=== PATIENT | male | born 1935 | race Caucasian/White ===

== ENCOUNTER 2019-03-31 12:06 | Observation (INO) | payer MEDICARE, BC ==
--- NOTE | 2019-03-31 12:29 | ED ---
Syncope/Near Syncope - HPI Summary HPI Summary: This pt is an 83 y/o male presenting to [facility] via EMS for a witnessed syncopal episode today. Pt reports he was out for breakfast at a diner when he syncopized. He notes feeling diaphoretic and dizzy prior to syncope. Denies chest pain, SOB, palpitations prior to syncope. Pt denies choking. Per bystander , pt's syncopal episode was very brief. Per triage note, "pt vomited 3x on scene , but has not been nauseated since." Pt currently reports feeling better. Denies currently chest pain, SOB, palpitations. Denies any past hx of syncope. His medications include Coumadin for afib, Lasix, metoprolol for HTN. Denies tobacco and drug use, but admits to occasional alcohol use. - History Of Current Complaint Hx Obtained From: Patient Onset/Duration: Sudden Onset, Resolved Timing: Seconds Context: Witnessed, Loss Of Consciousness Activity At Onset: At Rest Aggravating Factor(s): Nothing Alleviating Factor(s): Nothing Associated Signs And Symptoms: Diaphoresis, Dizzy, Vomiting - Allergies/Home Medications Allergies/Adverse Reactions: Allergies Allergy/AdvReac Type Severity Reaction Status Date / Time No Known Allergies Allergy Verified 03/31/19 12:24 Home Medications: Home Medications Furosemide 1 tab PO DAILY 03/31/19 [History Confirmed 03/31/19] Metoprolol Tartrate TAB* [Lopressor TAB*] 1 tab PO BID 03/31/19 [History Confirmed 03/31/19] Warfarin Sodium 5 mg PO DAILY 03/31/19 [History Confirmed 03/31/19] PMH/Surg Hx/FS Hx/Imm Hx Endocrine/Hematology History: Denies: Hx Diabetes Cardiovascular History: Reports: Hx Atrial Fibrillation, Hx Hypercholesterolemia , Hx Hypertension - Surgical History Surgical History: Yes Surgery Procedure, Year, and Place: knee replacement. ankle surgery. wrist surgery. elbow surgery - Family History Known Family History: Positive: Cardiac Disease - Brother with bypass surgery Family History: Mother with breast CA - Social History Alcohol Use: Occasionally Substance Use Type: Reports: None Smoking Status (MU): Never Smoked Tobacco Review of Systems Positive: Skin Diaphoresis. Negative: Fever, Chills Negative: Chest Pain Negative: Shortness Of Breath Positive: Vomiting Neurological: Other - POSITIVE: dizziness Positive: Syncope All Other Systems Reviewed And Are Negative: Yes Physical Exam - Summary Physical Exam Summary: VITAL SIGNS: Reviewed. GENERAL: Patient is a well-developed and nourished male who is lying comfortable in the stretcher. Patient is not in any acute respiratory distress. HEAD AND FACE: No signs of trauma. No ecchymosis, hematomas or skull depressions. No sinus tenderness. EYES: PERRLA, EOMI x 2, No injected conjunctiva, no nystagmus. EARS: Hearing grossly intact. Ear canals and tympanic membranes are within normal limits. MOUTH: Oropharynx within normal limits. NECK: Supple, trachea is midline, no adenopathy, no JVD, no carotid bruit, no c- spine tenderness, neck with full ROM. CHEST: Symmetric, no tenderness at palpation. LUNGS: Clear to auscultation bilaterally. No wheezing or crackles. CVS: Regular rate and rhythm, S1 and S2 present, no murmurs or gallops appreciated. ABDOMEN: Soft, non-tender. No signs of distention. No rebound, no guarding, and no masses palpated. Bowel sounds are normal. EXTREMITIES: FROM in all major joints, no edema, no cyanosis or clubbing. NEURO: Alert and oriented x 3. No acute neurological deficits. Speech is normal and follows commands. SKIN: Dry and warm. Triage Information Reviewed: Yes Vital Signs Reviewed: Yes Procedures - Sedation Patient Received Moderate/Deep Sedation with Procedure: No Diagnostics - Laboratory Result Diagrams: 03/31/19 14:56 03/31/19 14:56 Lab Statement: Any lab studies that have been ordered have been reviewed, and results considered in the medical decision making process. - Radiology Chest XR Radiology Interpretation Completed By: Radiologist Summary of Radiographic Findings: IMPRESSION: Cardiomegaly. No definite pneumonia is identified. Dr. Spence has reviewed this report. - CT Brain CT CT Interpretation Completed By: Radiologist Summary of CT Findings: IMPRESSION: 1. No acute intracranial abnormality by CT. 2. Mild chronic small vessel ischemic disease is likely. Dr. Spence has reviewed this report. - EKG 14:26 Cardiac Rate: NL - at 63 bpm EKG Rhythm: Sinus Rhythm Summary of EKG Findings: EKG at 1426 shows normal sinus rhythm at a rate of 63 vpm. Q waves in leads II, III, and aVF. LVH. No ST elevations. Course/Dx Assessment/Plan: This pt is an 83 y/o male presenting to [facility] via EMS for a witnessed syncopal episode today. Pt reports he was out for breakfast at a diner when he syncopize. He notes feeling diaphoretic and dizzy prior to syncope. Denies chest pain, SOB, palpitations prior to syncope. Pt denies choking. Per bystander, pt's syncopal episode was very brief. Per triage note, "pt vomited 3x on scene, but has not been nauseated since." Pt currently reports feeling better. Denies currently chest pain, SOB, palpitations. Denies any past hx of syncope. His medications include Coumadin for afib, Lasix, metoprolol for HTN. Denies tobacco and drug use, but admits to occasional alcohol use. Blood work without any significant abnormality except for glucose of 246, BNP is 122. Chest x-ray impression: Cardiomegaly. No definite pneumonia identified. Head CT impression: No acute intracranial abnormality. I discussed my physical exam and test results with Dr. Dawn from the hospitalist services and she agrees to admit the patient to her services. The patient is hemodynamically stable, alert and oriented x 3. - Diagnoses Provider Diagnoses: Syncope - Physician Notifications Discussed Care of Patient With: Judi Dawn - hospitalist Time Discussed With Above Provider: 16:32 Instructed by Provider To: Admit As Inpatient Discharge ED - Sign-Out/Discharge Documenting (check all that apply): Patient Departure - Admit to [facility] All imaging exams completed and their final reports reviewed: Yes - Discharge Plan Condition: Stable Disposition: ADMITTED TO [facility] - Billing Disposition and Condition Condition: STABLE Disposition: Admitted to [facility] - Attestation Statements Document Initiated by Oracio: Yes Documenting Scribe: Yennifer Armendariz Provider For Whom Oracio is Documenting (Include Credential): Harjeet Spence MD Scribe Attestation: Yennifer Romero, scribed for Harjeet Spence MD on 03/31/19 at 2125. Scribe Documentation Reviewed: Yes Provider Attestation: The documentation as recorded by the Yennifer mei accurately reflects the service I personally performed and the decisions made by me, Harjeet Spence MD Status of Scribe Document: Viewed
[2019-03-31] MEDS ORDERED: NS 0.9% 1000 ML** 1,000 ML IV ONE (14:13)
[2019-03-31 15:05] LABS: ABS Lymphocytes 0.8 10^3/ul (1.0-4.8); ABS Monocytes 0.4 10^3/ul (0-0.8); ABS Neutrophils 8.2 10^3/ul (1.5-7.7); Eosinophil % 0.3 %; Hematocrit 42 % (42-52); Hemoglobin 14.3 g/dL (14.0-18.0); Lymphocyte % 8.3 %; Mean Corpuscular HGB Conc 34 g/dL (31-36); Mean Corpuscular Hemoglobin 31 pg (27-31); Mean Corpuscular Volume 92 fL (80-94); Mean Platelet Volume 7.2 fL (7.4-10.4); Platelet Count 246 10^3/uL (150-450); Red Blood Count 4.59 10^6 /uL (4.18-5.48); Red Cell Distribution Width 15 % (10-15); White Blood Count 9.4 10^3/uL (3.5-10.8)
[2019-03-31 15:27] LABS: Albumin/Globulin Ratio 1.3 (1-3); BUN/Creatinine Ratio 15.5 (8-20); Calcium 8.8 mg/dL (8.6-10.3); EGFR African American 89.7 (>60); EGFR Non-African American 74.1 (>60); Globulin 3.1 g/dL (2-4); Potassium 4.8 mmol/L (3.5-5.0); Total Bilirubin 0.5 mg/dL (0.2-1.0); Total Protein 7.1 g/dL (6.4-8.9)
[2019-03-31 15:53] LABS: TSH (Thyroid Stimulating Horm) 0.7 mcIU/mL (0.34-5.60)
--- NOTE | 2019-03-31 17:40 | HP ---
History of Present Illness - History of Present Illness Reason for Visit: Syncope History of Present Illness: This is a 83 y/o M with history of HFpEF, CAD, paroxysmal Atrial Fibrillation and TIA presented with one episode of syncope which happened this morning. According to the patient, he was having breakfast in the diner and then he felt mild nausea and some discomfort and then passed out. It was witnessed by the dairy manufacturing technologist in the diner who is not present during the history and most of the history is from patient himself and he is a poor historian. According to the ED note, episode was brief and witness didnot notice confusion after the episode. Patient recalls that he was sitting in a joseph and then he fell forward on the table but denies hitting head and any trauma. He denies chest pain, dizziness, palpitation and weakness, incontinence. He denies fever, cough, facial droop, slurred speech, numbness, tingling and vertigo. He states that after the episode he felt nauseous and vomited 2 times. He recalls that people around them didnot allow him to stand and he had to sit there until they took him to the ambulance. IN ED His Blood pressure was elevated-181/84 mm Hg; other vitals stable. Blood work without any significant abnormality except for glucose of 246 and BNP is 122. Chest x-ray showed no acute cardiopulmonary disease. Head CT impression: No acute intracranial abnormality.The patient is hemodynamically stable,alert and oriented x 3. He was given IV fluids. - Past Medical History Past Medical History: 1. HFpEF 2. CAD - on medical management 3. Atrial Fibrillation-paroxysmal 4. TIA 5. Psoriasis Home Medications 1. Aspirin 81 mg PO daily 2. Coumadin 5 mg every day except Thursday and Thursday; MoWed takes 7.5 mg PO 3. Metoprolol tartate 50 mg BID 4. Lasix 20 mg PO daily - Past Surgical History Past Surgical History: 1. Left Knee Replacement 2. Wrist Surgery - Past Family History Past Family History: He has 4 kids- one when 1 day old and 2nd one at 51 years age because of heart and liver issues. Other 2 kids are healthy. His mother had Breast Cancer. - Past Social History Past Social History: He lives alone and is retired. He occassionally drinks alcohol and quit smoking 40 years ago; used to smoke 1 PPD before. His HCP is his daughter and son- Poonam Hartley([phone]), Enedina Hope([phone]). He is DNR. Review of Systems - Review of Systems Constitutional: Negative: Fever, Chills, Sweats, Weakness, Malaise, Other Eyes: Negative: Pain, Vision Change, Conjunctivae Inflammation, Eyelid Inflammation, Redness, Other ENT: Negative: Ear Pain, Ear Discharge, Nose Pain, Nose Discharge, Nose Congestion, Mouth Pain, Mouth Swelling, Throat Pain, Throat Swelling, Other Respiratory: Negative: Cough, Dry, Shortness of Breath, Hemoptysis, SOB with Excertion, Pleuritic Pain, Sputum, Wheezing Cardiovascular: Negative: Chest Pain, Palpitations, Orthopnea, Paroxysmal Noc. Dyspnea, Edema, Light Headedness, Other Gastrointestinal: Positive: Nausea, Vomiting. Negative: Abdominal Pain, Diarrhea, Constipation, Melena, Hematochezia, Other Genitourinary: Positive: Frequency. Negative: Dysuria, Incontinence, Hematuria , Retention, Other Musculoskeletal: Negative: Neck Pain, Shoulder Pain, Arm Pain, Back Pain, Hand Pain, Leg Pain, Foot Pain, Other Skin: Positive: Rash. Negative: Lesions, Toney, Bruising, Other Neurological: Negative: Weakness, Numbness, Incoordination, Change in Speech, Confusion, Seizures, Other - Medications/Allergies Allergies/Adverse Reactions: Allergies Allergy/AdvReac Type Severity Reaction Status Date / Time No Known Allergies Allergy Verified 03/31/19 12:24 Medications: Current Medications Enoxaparin Sodium (Lovenox(*)) 40 mg SUBCUT Q24H [facility] Furosemide (Lasix Tab*) 20 mg PO DAILY [facility] Metoprolol Tartrate (Lopressor Tab*) 50 mg PO BID [facility] Warfarin Sodium (Coumadin Tab(*)) 5 mg PO DAILY [facility]; Protocol Exam Vital Signs: Vital Signs (72 hours) 03/31/19 03/31/19 03/31/19 12:16 12:17 13:00 Temperature 97 F Pulse Rate 62 61 61 Respiratory 20 16 18 Rate Blood Pressure 181/84 (mmHg) O2 Sat by Pulse 97 98 96 Oximetry Exam: Patient is lying on a bed with no acute distress. HEENT: Normocephalic and atraumatic. Sclera anicteric. PERRLA Neck: No JVD Lungs: Clear with no added sounds. heart: S1/S2 heard with no murmur, rubs or gallops ABdomen: Soft, nondistended and nontender. Normal BS heard. Firm swelling on epigastric region. Extremities: 1+ pitting edema on bilateral LE. Rash on LLE ans LUE. Neuro: Alert, oriented and consious. CN intact. Motor and sensory intact. Assessment/Plan - Assessment/Plan Assessment: 83 M with history of HFpEF(on lasix), CAD(on aspirin), paroxysmal AF(metoprolol , warfarin), TIA presented with syncope while having breakfast. Found to have hyperglycemia and EKG showing 1st degree AV block with T inversion in III and V1 , Q waves with normal troponin. Plan: 1. Syncope: Patient is a poor historian. He does report some mild prodorme. D/D includes vasovagal syncope, arrhythmia like block, orthostatic hypotension. We will put him on Tele monitor to watch for any arrhythmia. We will also do Echo to rule out valve problem. We will measure orthostatic vitals. We will also order Carotid doppler to rule out any stenosis. 2.HFpEF-Last echo was on 06/2018 which showed Grade I diastolic dysfunction with EF of 50-55%. Continue his lasix. 3. CAD- Stress test done in 07/05/2018 showed small inferior-lateral infarct with elise infarct ischemia viraj at lateral wall and was stratified as low-to- intermediate risk. Continue Aspirin. 4. Atrial Fibrillation: Now normal rate and rhythm. [id number] score is 2. He is on warfarin 5 mg every day except Thursday and Thursday-7.5 mg daily. 5.Hyperglycemia- We will check A1C. 6. DVT Prophylaxis: On warfarin. 7. DIet: Heart Healthy diet 8. DNR Attestation Documenting Resident: Lucila Armstrong Supervising Physician: Jo Ann Aceves Attending/Supervising Physician Comment: Agree with resident H&P and findings 83M PMH HFpEF, CAD, A fib, TIA, psoriasis who is here after a witnessed syncope. Agree with cardiogenic workup, no e/o focal neruologic defecit or hx c/ w TIA or seizure. Attestation: This service has been performed in part by a resident under the direction of a teaching physician.I, Jo Ann Aceves, performed the service, or was physically present during the critical, or burnette portions of the service, furnished by the resident. I participated in the management of the patient.
[2019-03-31] MEDS ORDERED: Enoxaparin(*) 40 MG/0.4 ML SYR SUBCUT SCH (18:00)
[2019-03-31 18:36] LABS: INR 2.75 (0.82-1.09)
[2019-03-31] MEDS ORDERED: Warfarin TAB(*) 5 MG PO SCH (19:30)
[2019-03-31] MEDS: Metoprolol Tartrate TAB* 50 mg PO SCH (20:29)
--- NOTE | 2019-04-01 07:06 | PN ---
Subjective Date of Service: 04/01/19 Interval History: HD 2 on 04/01 83 M with history of HFpEF(on lasix), CAD(on aspirin), paroxysmal AF(metoprolol , warfarin), TIA presented with syncope while having breakfast. Found to have hyperglycemia and EKG showing 1st degree AV block with T inversion in III and V1 , Q waves with normal troponin. D/D vasovagal, arrhythmia No acute overnight events vitals stable Patient denies any complain at present. He agrees to be transferred to [facility]. He had one BM today and sent for stool occult blood test. According to his daughter, her aunt called and said that he was also coughing up some blood but is very unclear from the history. His Hb is stable now. Objective Active Medications: Furosemide (Lasix Tab*) 20 mg PO DAILY [facility] Metoprolol Tartrate (Lopressor Tab*) 50 mg PO BID [facility] Last Admin: 03/31/19 20:29 Dose: 50 mg Warfarin Sodium (Coumadin Tab(*)) 5 mg PO SuTuThFrSa@1700 [facility]; Protocol Last Admin: 03/31/19 20:30 Dose: 5 mg Warfarin Sodium (Coumadin Tab(*)) 7.5 mg PO MoWe@1700 [facility] Vital Signs - 8 hr 03/31/19 04/01/19 04/01/19 23:15 00:15 02:49 Temperature 98 F 97.7 F Pulse Rate 60 68 59 Respiratory 20 20 Rate Blood Pressure 106/50 143/60 122/50 (mmHg) O2 Sat by Pulse 97 97 Oximetry Oxygen Devices in Use Now: None Exam: Patient is lying on a bed with no acute distress. HEENT: Normocephalic and atraumatic. Sclera anicteric. PERRLA Neck: No JVD Lungs: Clear with no added sounds. heart: S1/S2 heard with no murmur, rubs or gallops ABdomen: Soft, nondistended and nontender. Normal BS heard. Firm swelling on epigastric region. Extremities: 1+ pitting edema on bilateral LE. Rash on LLE ans LUE. Neuro: Alert, oriented and consious. CN intact. Motor and sensory intact. Result Diagrams: 04/01/19 12:40 03/31/19 14:56 Assess/Plan/Problems-Billing Assessment: 83 M with history of HFpEF(on lasix), CAD(on aspirin), paroxysmal AF(metoprolol , warfarin), TIA presented with syncope while having breakfast. Found to have hyperglycemia and EKG showing 1st degree AV block with T inversion in III and V1 , Q waves with normal troponin. D/D vasovagal, arrhythmia. US carotid shows occluded left carotid stenosis and critical stenosis of RCA. ECho shows normal EF with mild aortic stenosis and hypokinesis of basalinferior wall. - Patient Problems (1) Syncope Current Visit: Yes Status: Acute Code(s): R55 - SYNCOPE AND COLLAPSE SNOMED Code(s): 623304320 Comment: -witnessed syncope. -doesnot exactly recall what exactly happened; poor historian -could be vasovagal; happened after large meal -EKg showing 1st degree heart block -Echo: Normal EF with basalinferior hypokinesis and mild aortic stenosis -US carotid showing complete occlusion of LCA and critical(70-99) stenosis of RCA> -Neuro following; appreciate recs -transferring to [facility] for revascularization (2) (HFpEF) heart failure with preserved ejection fraction Current Visit: Yes Status: Acute Code(s): I50.30 - UNSPECIFIED DIASTOLIC ( CONGESTIVE) HEART FAILURE SNOMED Code(s): 158921063 Comment: -has hsitory of HF with pEF -following Dr. Felix -Echo showing grade I diastolic dysfunction -on lasix (3) CAD (coronary artery disease) Current Visit: Yes Status: Acute Code(s): I25.10 - ATHSCL HEART DISEASE OF [place] CORONARY ARTERY W/O ANG PCTRS SNOMED Code(s): 96319375 Comment: -has hypokinesis and abnormal stress test in 06/2017 -on medical management -on aspirin -allergic to statin- but patient says it was long time ago and he doesnot remember what reaction it was. -we will try pravastatin- if develops rxn we can switch to ezetimibe (4) Diabetes Current Visit: Yes Status: Acute Code(s): E11.9 - TYPE 2 DIABETES MELLITUS WITHOUT COMPLICATIONS SNOMED Code(s): 83965058 Comment: -new diagnosis on this visit. -AqN4o-3.8 -can be started on metformin after his surgery (5) Atrial fibrillation Current Visit: Yes Status: Acute Code(s): I48.91 - UNSPECIFIED ATRIAL FIBRILLATION SNOMED Code(s): 81181117 Comment: -rate controlled with metoprolol -chadsvasc score of 6 -continue warfarin -INR on goal (6) DVT prophylaxis Current Visit: Yes Status: Acute Code(s): Z29.9 - ENCOUNTER FOR PROPHYLACTIC MEASURES, UNSPECIFIED SNOMED Code(s): 596286265 Comment: on therapeutic warfarin (7) DNR (do not resuscitate) Current Visit: Yes Status: Acute Status and Disposition: Inpatient transferring to [facility] Attending: Jo Ann Aceves Attestation Documenting Resident: Lucila Armstrong Supervising Physician: Jo Ann Aceves Attestation: This service has been performed in part by a resident under the direction of a teaching physician.I, Jo Ann Aceves, performed the service, or was physically present during the critical, or burnette portions of the service, furnished by the resident. I participated in the management of the patient.
[2019-04-01] MEDS ORDERED: Perflutren Lipid Microsphere* 3 ML VIAL ONE (08:18)
[2019-04-01] MEDS: Metoprolol Tartrate TAB* 50 mg PO SCH (09:00)
[2019-04-01] MEDS ORDERED: Furosemide TAB* 20 MG PO SCH (09:00)
--- NOTE | 2019-04-01 10:47 | ECHO ---
*[facility]* [place] [address] Fax #: [phone] Transthoracic Echocardiogram Patient: Enedina Hope : 1935 Study Date: 04/01/2019 Age: 83 Gender: M HR: 57 bpm Height: 73 in /185.4 cm BSA: 2.37 m^2 Weight: 249.5 lb /113.4 kg BMI: 33 kg/m^2 *Supervisor Telephone Answering Service: Juanita Eden RDCS RN *Referring Physician: * Lucila Armstrong *Reading Physician: * Yumiko Mcclain MD Indications: Syncope. History: Atrial fibrillation. Coronary artery disease. Congestive heart failure. Transient ischemic attack. Risk factors: Former tobacco use. Obese. Conclusions Summary: - Left ventricle: The cavity size is normal. Wall thickness is mildly to moderately increased. Systolic function is at the lower limits of normal. The estimated ejection fraction is 50-55%. - Mitral valve: There is mild regurgitation. - Aortic valve: The findings are consistent with mild stenosis. The peak systolic velocity is 2 m/sec. The mean systolic gradient is 10.0 mm Hg. The peak systolic gradient is 15.0 mm Hg. The LVOT to aortic valve VTI ratio is 0.37. The valve area by the velocity-time integral method is 1.54 cm^2. The valve area by the peak velocity method is 1.60 cm^2. - Tricuspid valve: There is mild regurgitation. - Pulmonic valve: There is mild regurgitation. - C/t 07/09/2018, aortic stenosis is new (was aortic sclerosis then although hemodynmaics are unchanged). Mixed valvular disease was trace then and now up to mild. Now aortic root measures normal instead of mildly dilated then. Study data: Transthoracic echocardiogram. Procedure: Transthoracic echocardiography was performed. Image quality was fair. The study was technically limited due to body habitus and smoking history. Intravenous Definity 3 ml was administered to enhance imaging. Complete 2D, spectral Doppler, and color flow Doppler. Location: Bedside. Patient status: Observation. Patient room number: 441-02. Rhythm: Bradycardia with PVCs. Findings Left ventricle: The cavity size is normal. Wall thickness is mildly to moderately increased. Systolic function is at the lower limits of normal. The estimated ejection fraction is 50-55%. Regional wall motion abnormalities: Hypokinesis of the basalinferior myocardium. Doppler parameters are consistent with abnormal left ventricular relaxation (grade 1 diastolic dysfunction). Right ventricle: The cavity size is mildly dilated. Systolic function is normal. Left atrium: The atrium is at the upper limits of normal in size. Right atrium: The atrium is slightly dilated. Mitral valve: The leaflets are mildly thickened. There is no evidence of stenosis. There is mild regurgitation. Aortic valve: The valve is trileaflet. The leaflets are mild-moderately thickened with decreased excursion. The findings are consistent with mild stenosis. There is no significant regurgitation. Tricuspid valve: The leaflets are normal thickness. There is no evidence of stenosis. There is mild regurgitation. Pulmonic valve: The leaflets are normal thickness. There is no evidence of stenosis. There is mild regurgitation. Aorta: Aortic root: The aortic root is not dilated. Ascending aorta: The ascending aorta is not dilated. Aortic arch: The aortic arch is not dilated. Pericardium: There is no pericardial effusion. Pulmonary arteries: The main pulmonary artery is normal-sized. Systolic pressure can not be accurately estimated. Systemic veins: Inferior vena cava: The vessel is normal in size. There is (>= 50%) respiratory change in the IVC dimension. Measurements Left ventricle Value Ref Aortic valve Value Ref LEV, LAX 4.6 cm 4.2 - Isabel diam, ED 2.3 cm ---- 5.8 Peak v, S 2 m/sec ---- ESD, LAX 3.5 cm 2.5 - VTI, S 47.9 cm ---- 4.0 Mean grad, S 10.0 mm Hg ---- FS, LAX 25 % 25 - 43 Peak grad, S 15.0 mm Hg ---- PW, ED (H) 1.1 cm 0.6 - LVOT/AV, VTI ratio 0.37 ---- 1.0 EBER, VTI 1.54 cm^2 ---- IVS/PW, ED 1.26 -------- EBER, Vmax 1.60 cm^2 ---- E', lat isabel, TDI (L) 6.5 cm/sec >=10.0 E/e', lat isabel, TDI 14 -------- Mitral valve Value Ref E', med isabel, TDI (L) 4.8 cm/sec >=7.0 Peak E 0.92 m/sec -- -- E/e', med isabel, TDI 19 -------- Peak A 0.9 m/sec ---- E', avg, TDI 5.7 cm/sec -------- Decel time 254 ms ---- E/e', avg, TDI (H) 16 <=14 Peak grad, D 3.4 mm Hg -- -- Peak E/A ratio 1 ---- LVOT Value Ref Diam, S 2.30 cm -------- Pulmonic valve Value Ref Area 4.2 cm^2 -------- Peak v, S 0.77 m/sec ---- Peak jelena, S 0.77 m/sec -------- Peak grad, S 2.0 mm Hg ---- VTI, S 17.8 cm -------- Mean grad, S 2 mm Hg -------- Aortic root Value Ref SV 85 ml -------- Root diam 3.2 cm <4.4 SV/bsa 36 ml/m^2 -------- Ascending aorta Value Ref Ventricular septum Value Ref AAo AP diam, S 3.4 cm ---- IVS, ED (H) 1.4 cm 0.6 - 1.0 Aortic arch Value Ref Arch diam 2.7 cm ---- Right ventricle Value Ref LEV minor ax, A4C (H) 3.7 cm 1.9 - Decending aorta Value Ref mid 3.5 Tali peak jelena 0.68 m/sec ---- Left atrium Value Ref Inferior vena cava Value Ref ML dim, A4C 3.9 cm -------- Diam 2.0 cm ---- SI dim, A4C 5.0 cm -------- Vol/bsa, ES, 1-p 25 ml/m^2 12 - 37 A4C Vol/bsa, ES, A/L 34 ml/m^2 16 - 34 Right atrium Value Ref ML dim, ES, A4C 3.7 cm 2.6 - 4.4 SI dim, ES, A4C (H) 5.4 cm 3.4 - 5.3 Estimated RAP 3 mm Hg -------- Legend: (L) and (H) liss values outside specified reference range. Prepared and electronically signed by Yumiko Mcclain MD 04/01/2019 10:46
[2019-04-01 11:53] LABS: Urine Appearance Clear; Urine Bilirubin Negative (Negative); Urine Blood Negative (Negative); Urine Color Yellow; Urine Glucose 1+(50 mg/dL) (Negative); Urine Ketones Negative (Negative); Urine Nitrite Negative (Negative); Urine Protein Negative (Negative); Urine Specific Gravity 1.017 (1.010-1.030); Urine Urobilinogen Negative (Negative)
--- NOTE | 2019-04-01 12:25 | CONSULT ---
Consult Consult: Date of service: 04/01/2019 Reason for consult: Neurology was consulted by Dr. Armstrong/Dr. Aceves for abnormal carotid ultrasound results. The history was obtained by the patient. Chief complaint: Passed out History of Present Illness: Mr. Hope is an 83-year-old man with a past medical history of atrial fibrillation on coumadin, TIA in 2005 manifesting as visual disturbance, hypertension, who had an episode of loss of consciousness on 03/31/2019. The patient was at the diner having breakfast at 10 AM. He recalls sitting in a joseph. He finished his meal and was waiting for the detail manager to refill his coffee. He suddenly passed out and does not recall what happened for about a minute. He denied any focal weakness or paresthesia. He denied any visual disturbance. He denied any headaches, double vision, slurred speech or swallowing difficulty. There were no reported seizure-like activity. Following the episode, he felt nauseated and vomited twice. He denied any prodromal symptoms of lightheadedness or vertigo. He woke-up and people were around him trying to care for him. He recalls being placed on a stretcher and transported to [facility]. The patient reports chronic symptoms of orthostatic hypotension. For instance, he has to sit at the edge of the bed for a minute before standing to prevent lightheadedness. He gets dizzy when bending forward or leaning to picking machine operator an object off the floor. With further questioning about why he is on aspirin therapy, the patient stated that "it was for artery disease" but was not sure if it was for CAD or carotids. He cannot tolerate statin therapy due to myalgia. Orthostatic vitals were measured and are normal. The patient's SBP increased from 117 to 143 from lying to standing. NIHSS: 0 Labs, Imaging and Other Diagnostics: INR: 2.75 Glucose: 246 Urinalysis: no pyuria. IMAGING: - Carotid ultrasound 04/01/2019: 70-99% stenosis in the right ICA with interval worsening and occluded left ICA new compared to the 2005 exam. - TTE 04/01/2019: EF 50-55%. Past Medical History: As per HPI in addition to psoriasis, CAD, Family History: Mother had cancer. No history of stroke or seizures. Social History: Former smoker, quit [id number] after he smoked 1ppd for > 30 years. He drinks occasionally. He is retired and resides alone. Medications: Furosemide (Lasix Tab*) 20 mg PO DAILY [facility] Last Admin: 04/01/19 09:00 Dose: 20 mg Metoprolol Tartrate (Lopressor Tab*) 50 mg PO BID [facility] Last Admin: 04/01/19 09:00 Dose: 50 mg Warfarin Sodium (Coumadin Tab(*)) 5 mg PO [id number]@1700 AGNES; Protocol Last Admin: 03/31/19 20:30 Dose: 5 mg Warfarin Sodium (Coumadin Tab(*)) 7.5 mg PO [id number]@1700 AGNES Allergies No Known Allergies Allergy (Verified 03/31/19 12:24) Review of Systems: A 14-point ROS was obtained and otherwise negative except for what was mentioned in the HPI. Physical Exam: Vitals: Vital Signs - 12 hr Temp Pulse Resp BP Pulse Ox 04/01/19 11:15 97.9 F 57 20 118/52 96 04/01/19 08:00 18 04/01/19 07:15 97.8 F 60 18 135/74 100 04/01/19 02:49 97.7 F 59 20 122/50 97 General: well nourished, well developed. Alert, cooperative, no apparent distress, appears stated age. Head: normocephalic, without obvious abnormality Eyes: conjunctivae/corneas clear Neck: supple, symmetrical. No clear carotid bruit. No lymphadenopathy. Lungs: clear to auscultation bilaterally, non-labored CV: regular rhythm, S1, S2 normal, radial pulses palpable Extremities: normal range of motion with no cyanosis. Skin: hyperpigmented lesion on the left ear. Psych: affect-broad and normal mood. Easy to establish rapport. Neurological examination: Mental status: awake; alert and oriented to person, place, time, & general circumstances; speech & language including expression, naming, repetition, & comprehension was assessed and found to be normal. Cranial nerves: I: not tested II, III, IV, : normal confrontation B/L, Pupils midrange and reactive to light , normal consensual response; extraocular muscles are intact; no ptosis; no conjugate or asymmetrical nystagmus V 1/2/3: sensation is intact on forehead, cheeks, and jaw region VII: no facial droop; facial symmetry while smiling & wrinkling of forehead; tight lid closure VIII: able to hear throughout the history process IX & X: symmetric palatal elevation XI: normal strength against resistance XII: tongue is symmetrical & midline with no atrophy or fasciculations Motor (R/L): no abnormal movements, no pronator drift. Normal bulk and tone throughout. No fasciculations. Neck extension 5. Shoulder ROM is full. Shoulder abduction 5/5. Elbow flexion 5/5, extension 5/5. Wrist flexion 5/5, extension 5/5. Finger flexion 5/5, extension 5/5, abduction 5/5. Hip flexion 5/5, abduction 5/5. Knee flexion 5/5, extension 5/5. Ankle dorsiflexion 5/5, plantarflexion 5/5. Reflexes: 1+ throughout symmetrically, absent at the ankles. Sensation is intact to light touch throughout. Coordination: normal finger to nose and rapid alternating movements. Gait & Station: antalgic gait, no ataxia. Assessment: Mr. Hope is an 83-year-old man with a past medical history of atrial fibrillation on coumadin, TIA in 2004 manifesting as visual disturbance, hypertension, who had an episode of loss of consciousness on 03/31/2019. The patient was found to have critical stenosis of the right ICA and occluded left ICA. 1. Syncope. Most likely post-prandial hypotension in the setting of carotid disease. 2. Right severe ICA stenosis and left ICA occlusion. There has been an interval worsening of the carotid disease when compared to prior studies. He has no evidence of focal weakness or paresthesia. NIHSS 0. We do not suspect he had a TIA or stroke. 3. Hypertension 4. History of TIA in 2004 5. Dyslipidemia: cholesterol 263 and LDL 176 Recommendations: - Discussed case with Dr. Stinson (NSG at ) and Dr. Yost (Vascular surgery at [facility]). The family decided to go to for higher level of care. The patient is at risk for a major stroke or recurrent syncope related to the carotid disease. - Start Zetia 10 mg nightly. We could also place him on high dose pravastatin instead of atorvastatin since he has history of statin intolerance. - Continue aspirin and coumadin therapy. - Further imaging like a CTA or cerebral conventional angiogram can be done at once he is transferred. Dr. Stinson agreed with the plan. - The patient was able to walk around without assistance and is asymptomatic at this point. He is cleared to be transferred via by family to [place] once a bed is available. - Continue supportive care Discussed the above recommendations with Dr. Aceves and Dr. Armstrong. I spent a total of 70 minutes of which more than 50% was spent obtaining history , examining the patient, education and counseling, and discussing the treatment plan as they all agreed upon. Suzy Urban MD Date: 04/01/2019 Time: 13:30
[2019-04-01 12:52] LABS: Hematocrit 38 % (42-52)
[2019-04-01 12:59] LABS: HDL Cholesterol 55.1 mg/dL
--- NOTE | 2019-04-01 14:13 | TRS ---
CC: Dr. Yuval García; Dr. Mitch Stinson; Dr. Abbe Felix TRANSFER SUMMARY: DATE OF ADMISSION: 03/31/19 DATE OF TRANSFER: 04/01/19 PRIMARY CARE PROVIDER: Dr. Yuval García. ACCEPTING PHYSICIAN: Dr. Mitch Stinson, who has accepted the patient for direct admission to [facility]. FLOOR COVERING PRINTER: Dr. Abbe Felix. PRIMARY DIAGNOSES: 1. Syncope 2. 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 3. Hematemsis? Unlikely true, but question of this on admission according to the patients family. SECONDARY DIAGNOSES: 1. Heart failure with preserved ejection fraction. 2. Coronary artery disease, on medical management, with last stress test June of 2018 showing fixed lateral wall defect and correlating echocardiogram on 04/07 showing hypokinesis in the basal inferior myocardium. 3. History of transient ischemic attack with visual disturbance in the past. 4. Atrial fibrillation, on anticoagulation, nonvalvular. 5. Psoriasis. 6. HLD 7. NIDDM, new diagnosis PAST SURGICAL HISTORY: Left knee replacement and wrist surgery. MEDICATIONS AT THE TIME OF DISCHARGE: 1. Aspirin 81 mg. 2. Furosemide 20 mg daily. 3. Metoprolol tartrate 50 mg 1 tab p.o. b.i.d. 4. Pravastatin 40 mg p.o. QHS HISTORY OF PRESENT ILLNESS AND HOSPITAL COURSE: This is an 83-year-old male with past medical history of heart failure with preserved ejection fraction, follows with Cardiology; CAD, on medical management, with abnormal stress test last in June of 2018; paroxysmal atrial fibrillation, on anticoagulation and beta-denisse; and history of TIA with visual disturbance, who presented with an episode of witnessed loss of consciousness and syncope. On 03/31/19, the patient was having breakfast at his usual diner and shortly after eating he reports that he had tunnel vision, some nausea, and according to the slice cutting machine operator he lost consciousness and suddenly passed out and does not recall what happened for about a minute. According to EMS, the patient was not postictal, did not have loss of bladder or bowel and had no jerking movements. The patient does report some visual changes prior to it as well as nausea and per report of EMS he also had vomited his breakfast shortly after the event. In the emergency room, he was found to be hypertensive initially to systolic 180s with a heart rate of first-degree AV block in the 60s, respiration rate 13 , and oxygen saturation 99% on room air. EKG was done in the emergency room, which showed first-degree AV block with intraventricular conduction delay consistent with prior T-wave inversions in III, aVF that are age indeterminate, but otherwise no signs of acute ischemia. A chest x-ray was performed that showed cardiomegaly, but no other focal intrathoracic pathology. Transthoracic echocardiogram was also done in the emergency room, which showed an ejection fraction of 50% to 55%, grade 1 diastolic dysfunction, hypokinesis of the basal inferior myocardium, and valvular pathology that showed mild regurgitation of tricuspid and pulmonic valves, aortic valve consistent with mild stenosis with a peak systolic gradient of 15, valve area of 1.54 cm squared and the mean systolic gradient of 10 mmHg. The mitral valve shows mild regurgitation. The patient was admitted to the hospitalist service under observation and his hospital course by problems is as follows: 1. Syncope with loss of consciousness. Unfortunately, it was witnessed only by staff at the diner. We did attempt to reach out to the slice cutting machine operator, although she was currently not working and they did not have a telephone number for her to obtain collateral, though per EMS the slice cutting machine operator reported that he was just before the event diaphoretic. He complained of some tunnel vision and then has no accurate memory of what happened. He is a fair to poor historian at baseline. His children who accompanied him to the emergency room also were not there to witness it. Thus, it is unclear to tell if there was clear prodrome. The patient had no neurologic deficits on presentation to the emergency room and he was admitted under observation for further cardiac workup and to be monitored on telemetry. Overnight on telemetry, he remained in first-degree AV block. Because of his visual disturbances, a carotid ultrasound was ordered, which incidentally was found to have bilateral internal carotid artery stenosis with left totally occluded and right 70% to 99% occluded. We asked Neurology to weigh in on whether there was a component of posterior circulation or postprandial hypoperfusion causing the syncope, which he agreed that it was possible that it could have led to this and given the high risk nature of his findings, Neurology reached out to the [facility] to determine if the patient could be transferred for further definitive management of this finding. He was accepted to Dr. Stinson's service and preparations were made to transfer. He remained asymptomatic. His family was counseled on the next steps , which would be to obtain consultation to determine what next steps would be in definitive management if any of they choose so. From a secondary prevention standpoint from his vascular disease, the patient is on aspirin and warfarin, but not on statin which he reports intolerance to in the past, although it is reasonable to re-trial low-dose statin. His lipids and A1c were added on during this hospitalization and can be found in the lab packet on discharge. 2. History of CAD, on medical management. The patient follows with Dr. Abbe Felix. Last stress test was in June 2018, which was abnormal with fixed lateral wall defect with correlating regional wall motion abnormalities seen on echocardiogram. He has been without any chest pain. He had troponins trended on this hospitalization, which were 0.00 x3. 3. Atrial fibrillation, paroxysmal, on anticoagulation. His CHADS-VASc score is greater than 3. He has been in first-degree AV block during this hospitalization without complications. He is also on beta-denisse, which will be discontinued. 4. Heart failure with preserved ejection fraction. The patient is euvolemic on our exam and is already on furosemide and beta-denisse. His EF is 50% to 55% . He does not require preload or afterload modifications at this time. 5. Question of vomiting during this episode. On further collateral with daughter, there was some concern that he vomited dark material? This was brought to our attention this morning, although it was not witnessed by EMS and we were unable to contact the slice cutting machine operator as per above. The patient complains of no stomach pain. His H and H were stable on arrival at 14.3 and hematocrit of 42 and repeat is pending at the time of this dictation. A fecal occult blood was done which is pending at the time of dictation and a guaiac was done which was still pending. There is no evidence that there was GI bleed, although the family wanted us to ensure to rule it out because this question of dark material that was vomited. Again, the limitations in this history are that it was unwitnessed by family and the patient is a poor historian, again no other concerning findings for peptic ulcer disease and certainly no brisk bleed in the setting of therapeutically anticoagulated male, thus it is presumed that he just vomited his breakfast. 6. Hypertension. The patient was admitted with hypertension and his hypertension resolved after coming out of the emergency room with resumption of his home metoprolol. On the day of discharge/transfer, the patient has tolerated diet, last diet was 04/01/19 for breakfast. He is voiding freely and ambulating safely with the use of a cane, which is his baseline. DIAGNOSTIC STUDIES/LAB DATA: Labs and studies are to be included with this packet and reviewed as per above, but include the following: A brain CT on 04/07, which shows no acute intracranial pathology. A chest x-ray on 03/31/19, which shows cardiomegaly, but no other intrathoracic pathology. A transthoracic echocardiogram done on 03/31/19 with results as per above. Carotid Doppler ultrasound study done on 04/01/19 with left internal carotid full occlusion and 70% to 99% range right internal carotid artery occlusion. Compared to prior 2005 exam, left occlusion is new and right internal carotid artery is with worsening. ITEMS TO FOLLOW UP ON STATUS POST DISCHARGE: 1. Bilateral occluded internal carotid arteries. He is being transferred to [facility] for definitive consultation on management and options. Given the high risk nature of these lesions, it is reasonable to optimize instead of going to outpatient as the patient has poor outpatient followup. 2. Hematemesis? The patient's family was concerned that there was the possibility he vomited blood, although this was not witnessed by EMS or the EMS ' report of what the slice cutting machine operator saw. The patient himself does not report that this occurred. It is unclear if this is a true history or a concern. There is no evidence that this occurred either by guaiac or H and H and further history and collateral can be obtained or the patient continued to be watched for signs and symptoms of any peptic ulcer disease or hematemesis. DISPOSITION AT THE TIME OF DISCHARGE: Stable to be discharged to [facility]. T TIME SPENT: Forty-five minutes was spent on the planning of this discharge with over half of that was spent directly at the bedside of the patient providing direct patient care. If there are any questions about the care of this patient, please do not hesitate to reach out and contact me directly, my cellphone is [phone]. [id number]/[facility] #: [id number] CASSIE
[2019-04-01] MEDS ORDERED: Atorvastatin* 10 MG TAB PO SCH (15:00)
[2019-04-01] MEDS ORDERED: CMCS: Pravastatin (NF) 20 MG TAB PO SCH (15:00)
[2019-04-01 15:44] VITALS: BP 137/57
[2019-04-01] MEDS ORDERED: Ezetimibe TAB* 10 MG PO SCH (17:00)
[2019-04-04] MEDS ORDERED: Warfarin TAB(*) 7.5 MG PO SCH (17:00)
== END 2019-04-01 16:18 | disposition short-term general hospital (02) ==
LOC: ED 12:06 → MEDTELE 17:17
PROVIDERS: ADMIT Internal Medicine; ATTEND Internal Medicine
DX: R55 Syncope and collapse (principal); I65.23 Occlusion and stenosis of bilateral carotid arteries; I11.0 Hypertensive heart disease with heart failure; I50.30 Unspecified diastolic (congestive) heart failure; I25.10 Atherosclerotic heart disease of native coronary artery without angina pectoris; I48.0 Paroxysmal atrial fibrillation; Z86.73 Personal history of transient ischemic attack (TIA), and cerebral infarction without residual deficits; L40.9 Psoriasis, unspecified; E11.9 Type 2 diabetes mellitus without complications; E78.5 Hyperlipidemia, unspecified; Z79.82 Long term (current) use of aspirin; Z79.899 Other long term (current) drug therapy; Z79.01 Long term (current) use of anticoagulants; Z87.891 Personal history of nicotine dependence; R94.31 Abnormal electrocardiogram [ECG] [EKG]
CPT/HCPCS: 36415; 70450; 71046; 80053; 80061; 81003; 82272; 82550; 83036; 83605; 83735; 83880; 84443; 84484; 85014; 85018; 85025; 85610; 93005; 93306; 93880; 96360; 99283; A9270-GY; C8929; G0378; G8978-GP-CI; G8979-GP-CI; G8980-GP-CI

== ENCOUNTER 2022-04-07 11:18 | Inpatient (IN) ==
[2022-04-07] MEDS ORDERED: Lactated Ringers 1000 ml BAG 1,000 ML IV ONE (11:23)
[2022-04-07 11:38] LABS: ABS Basophils 0.1 10^3/ul (0-0.2); ABS Eosinophils 0.1 10^3/ul (0-0.6); ABS Lymphocytes 0.8 10^3/ul (1.0-4.8); ABS Monocytes 0.5 10^3/ul (0-0.8); Eosinophil % 1.8 %; Hematocrit 30 % (42-52); Lymphocyte % 10.6 %; Mean Corpuscular HGB Conc 34 g/dL (31-36); Mean Corpuscular Hemoglobin 32 pg (27-31); Mean Corpuscular Volume 93 fL (80-94); Mean Platelet Volume 8.2 fL (7.4-10.4); Platelet Count 191 10^3/uL (150-450); Red Blood Count 3.18 10^6 /uL (4.18-5.48); Red Cell Distribution Width 14 % (10-15); White Blood Count 7.5 10^3/uL (3.5-10.8)
[2022-04-07] MEDS ORDERED: Iodixanol (CONTRAST) 320 MG/ML 100 ML SDV IV ONE (11:42)
[2022-04-07 11:53] LABS: INR 3.93 (0.88-1.18)
[2022-04-07 12:31] LABS: Albumin 3.8 g/dL (3.2-5.2); Albumin/Globulin Ratio 1.5 (1-3); C Reactive Protein 2.99 mg/L (<8.01); Calcium 8.2 mg/dL (8.6-10.3); Globulin 2.5 g/dL (2-4); Total Bilirubin 0.4 mg/dL (0.2-1.0); Total Protein 6.3 g/dL (6.4-8.9); eGFR CKD-EPI 23.3 (>60)
[2022-04-07 12:36] LABS: Potassium 5.3 mmol/L (3.5-5.0)
[2022-04-07 12:39] LABS: PCO2 Arterial 37 mmHg (35-45); PO2 Arterial 212 mmHg (80-100)
[2022-04-07 13:26] LABS: High Sensitivity Troponin 1 Hr 37 pg/mL (<20)
[2022-04-07] MEDS ORDERED: Warfarin per PHARMACY **NOTE FOLLOW UP SCH (15:00)
[2022-04-07] MEDS ORDERED: NS 0.9% 1000 ml BAG 1,000 ML IV ONE (15:00)
[2022-04-07 16:31] LABS: Urine Appearance Slightly Cloudy; Urine Bilirubin Negative (Negative); Urine Blood Trace (Intact) (Negative); Urine Color Yellow; Urine Glucose Negative (Negative); Urine Ketones Negative (Negative); Urine Nitrite Negative (Negative); Urine Protein Negative (Negative); Urine Urobilinogen 0.2 (Negative) (Negative); Urine pH 5.5 (5.0-9.0)
[2022-04-07 16:46] LABS: Ferritin 105.6 ng/mL (24-336)
[2022-04-07] MEDS ORDERED: Warfarin - No Order Today **NOTE FOLLOW UP ONE (17:00)
[2022-04-07 17:07] LABS: Urine Bacteria 1+ (Absent); Urine Red Blood Cell 2+(6-10/hpf) (Absent); Urine Squamous Epithelial Cell Present (Absent); Urine Transitional Epithelial Present (Absent); Urine White Blood Cell 3+(>20/hpf) (Absent)
[2022-04-08 04:48] LABS: ABS Eosinophils 0.2 10^3/ul (0-0.6); ABS Lymphocytes 1.2 10^3/ul (1.0-4.8); ABS Monocytes 0.6 10^3/ul (0-0.8); ABS Neutrophils 5.2 10^3/ul (1.5-7.7); Eosinophil % 2.2 %; Hematocrit 27 % (42-52); Hemoglobin 9.2 g/dL (14.0-18.0); Lymphocyte % 16.9 %; Mean Corpuscular HGB Conc 34 g/dL (31-36); Mean Corpuscular Hemoglobin 32 pg (27-31); Mean Corpuscular Volume 94 fL (80-94); Platelet Count 163 10^3/uL (150-450); Red Blood Count 2.89 10^6 /uL (4.18-5.48); Red Cell Distribution Width 14 % (10-15); White Blood Count 7.2 10^3/uL (3.5-10.8)
[2022-04-08 04:54] LABS: INR 4.01 (0.88-1.18)
[2022-04-08 05:24] LABS: Calcium 7.7 mg/dL (8.6-10.3); eGFR CKD-EPI 26.6 (>60)
[2022-04-08 05:25] LABS: Potassium 5.2 mmol/L (3.5-5.0)
[2022-04-08] MEDS ORDERED: Metoprolol Tartrate 5 mg VIAL 5 ml VIAL (1 mg/ml) ONE (05:41)
[2022-04-08] MEDS ORDERED: Metoprolol Tartrate 5 mg VIAL 5 ml VIAL (1 mg/ml) IV ONE (05:42)
[2022-04-08] MEDS ORDERED: Digoxin IV 0.5 MG/2 ML AMP (0.25 MG/ML) IV SLOW PU ONE ×2 (05:51→09:58)
[2022-04-08] MEDS ORDERED: Lactated Ringers 1000 ml BAG 1,000 ML IV ONE (07:31)
[2022-04-08] MEDS: NS 0.9% 500 ml BAG 500 ML IV SCH ×2 (08:10→09:36)
[2022-04-08] MEDS ORDERED: Phenylephrine 40 mcg/mL 10mL (400mcg) SYRINGE ONE (08:33)
[2022-04-08] MEDS ORDERED: fentaNYL 100 mcg/2 ml 50 MCG/ML VIAL ONE (08:36)
[2022-04-08] MEDS ORDERED: Naloxone 0.4 mg VIAL 0.4 mg/ml 1 ml VIAL ONE (08:36)
[2022-04-08] MEDS ORDERED: Midazolam 5 mg/5 ml VIAL 1 mg/ml 5 ml VIAL (5 mg) ONE (08:36)
[2022-04-08] MEDS ORDERED: Flumazenil 0.5 mg/5 ml 0.1 MG/ML 5 ml VIAL ONE (08:36)
[2022-04-08] MEDS: Patiromer POWDER 8.4 GM PAK PO SCH ×2 (09:57→12:39)
[2022-04-08] MEDS: Aspirin EC 325 mg TAB.EC PO SCH (09:58)
[2022-04-08] MEDS ORDERED: Sulfur Hexaflouride MICROSPHR 25 MG VIAL ONE (15:06)
[2022-04-08] MEDS ORDERED: Warfarin - No Order Today **NOTE FOLLOW UP ONE (17:00)
[2022-04-09 06:24] LABS: INR 2.78 (0.88-1.18)
[2022-04-09 06:40] LABS: Digoxin 1.1 ng/ml (0.8-2.0)
[2022-04-09] MEDS: Aspirin EC 325 mg TAB.EC PO SCH (09:33)
[2022-04-09 11:24] LABS: ABS Basophils 0.1 10^3/ul (0-0.2); ABS Eosinophils 0.2 10^3/ul (0-0.6); ABS Monocytes 0.6 10^3/ul (0-0.8); ABS Neutrophils 5.6 10^3/ul (1.5-7.7); Eosinophil % 2.7 %; Hematocrit 30 % (42-52); Hemoglobin 9.8 g/dL (14.0-18.0); Lymphocyte % 13.7 %; Mean Corpuscular HGB Conc 33 g/dL (31-36); Mean Corpuscular Hemoglobin 31 pg (27-31); Mean Corpuscular Volume 94 fL (80-94); Mean Platelet Volume 8.4 fL (7.4-10.4); Platelet Count 174 10^3/uL (150-450); Red Blood Count 3.16 10^6 /uL (4.18-5.48); Red Cell Distribution Width 14 % (10-15); White Blood Count 7.5 10^3/uL (3.5-10.8)
[2022-04-09 11:43] LABS: Calcium 8.8 mg/dL (8.6-10.3); Magnesium 1.8 mg/dL (1.9-2.7); eGFR CKD-EPI 37.7 (>60)
[2022-04-09 11:44] LABS: Potassium 5.1 mmol/L (3.5-5.0)
[2022-04-09 12:21] LABS: Urine Creatinine Concentration 70.44 mg/dL
[2022-04-09 12:56] LABS: Urine Appearance Clear; Urine Bilirubin Negative (Negative); Urine Color Yellow; Urine Glucose Negative (Negative); Urine Ketones Negative (Negative); Urine Nitrite Negative (Negative); Urine Protein Negative (Negative); Urine Specific Gravity 1.015 (1.005-1.030); Urine Urobilinogen 0.2 (Negative) (Negative); Urine pH 5.5 (5.0-9.0)
[2022-04-09 13:06] LABS: Urine Bacteria Absent (Absent); Urine Red Blood Cell 3+(>10/hpf) (Absent); Urine Squamous Epithelial Cell Present (Absent); Urine White Blood Cell Trace(0-5/hpf) (Absent)
[2022-04-09] MEDS ORDERED: D5W 250 ml BAG 250 ML IV ONE (13:57)
[2022-04-09] MEDS ORDERED: Magnesium Sulfate IV 3 GM in NS 0.9% 100 ml BAG 100 ML IVPB ONE (13:59)
[2022-04-09] MEDS: Patiromer POWDER 8.4 GM PAK PO SCH (14:17)
[2022-04-09] MEDS ORDERED: Digoxin IV 0.5 MG/2 ML AMP (0.25 MG/ML) IV SLOW PU ONE (18:01)
[2022-04-09] MEDS ORDERED: Metoprolol Tartrate 5 mg VIAL 5 ml VIAL (1 mg/ml) IV ONE (23:19)
[2022-04-10 06:19] LABS: ABS Eosinophils 0.2 10^3/ul (0-0.6); ABS Lymphocytes 1.1 10^3/ul (1.0-4.8); ABS Monocytes 0.6 10^3/ul (0-0.8); Eosinophil % 2.2 %; Hematocrit 27 % (42-52); Hemoglobin 9.1 g/dL (14.0-18.0); Lymphocyte % 16.3 %; Mean Corpuscular HGB Conc 34 g/dL (31-36); Mean Corpuscular Hemoglobin 32 pg (27-31); Mean Corpuscular Volume 94 fL (80-94); Mean Platelet Volume 8.2 fL (7.4-10.4); Platelet Count 174 10^3/uL (150-450); Red Blood Count 2.89 10^6 /uL (4.18-5.48); Red Cell Distribution Width 14 % (10-15); White Blood Count 6.9 10^3/uL (3.5-10.8)
[2022-04-10 06:25] LABS: INR 2.14 (0.88-1.18)
[2022-04-10 06:30] LABS: Calcium 8.9 mg/dL (8.6-10.3); Magnesium 2.2 mg/dL (1.9-2.7); eGFR CKD-EPI 40.7 (>60)
[2022-04-10 06:34] LABS: Potassium 5.4 mmol/L (3.5-5.0)
[2022-04-10] MEDS: Aspirin EC 325 mg TAB.EC PO SCH (08:07)
[2022-04-10] MEDS ORDERED: D5W 250 ml BAG 250 ML IV ONE (11:37)
[2022-04-10] MEDS ORDERED: Patiromer POWDER 8.4 GM PAK PO SCH (12:00)
[2022-04-10 14:32] LABS: Calcium 8.7 mg/dL (8.6-10.3); Potassium 4.9 mmol/L (3.5-5.0)
[2022-04-10 16:40] VITALS: BP 90/42
[2022-04-10] MEDS ORDERED: Warfarin DAILY REMINDER **NOTE FOLLOW UP SCH (17:00)
== END 2022-04-10 17:35 | disposition home or self-care (01) | DRG 683 ==
LOC: EDHOLD 11:18 → ED 11:18 → SUATTDRO 14:26 → EDHOLD 04-08 14:05 → MEDTELE 04-08 14:13
PROVIDERS: ADMIT Internal Medicine; ATTEND Internal Medicine